=== PATIENT | male | born 1950 | race Caucasian/White ===

== ENCOUNTER 2016-05-05 23:04 | Emergency (ER) | payer MEDICARE, OTHER ==
[~2016-05-05 23:04] MED LIST: ADULT LOW DOSE81 MG PO; ANTIVERT 12.512.5 MG PO; COZAAR50 MG PO; FLAGYL500 MG PO; LEVAQUIN500 MG PO; LOPRESSOR50 MG PO; NITROSTAT0.4 MG SL; NORVASC5 MG PO; PHENERGAN 12.12.5 M1 PO; PLAVIX75 MG PO; PRAVACHOL40 MG PO; PROTONIX40 MG PO; RANEXA500 MG PO; TYLENOL325 MG PO
[2016-05-06 04:55] LABS: HEMOGLOBIN 13.7 gm/dl (14.0-17.5); RED BLOOD COUNT 4.51 M/UL (4.20-5.50); WHITE BLOOD COUNT 6.5 K/UL (4.5-11.0)
[2016-05-06 05:13] LABS: BUN/CREATININE RATIO 21 (0-10)
== END 2016-05-06 06:52 | disposition home or self-care (01) ==
LOC: ER1 23:04
PROVIDERS: Family Medicine
DX: I10 Essential (primary) hypertension (principal); R06.02 Shortness of breath; R05 Cough; I25.10 Atherosclerotic heart disease of native coronary artery without angina pectoris; E78.5 Hyperlipidemia, unspecified; Z95.5 Presence of coronary angioplasty implant and graft; Z90.49 Acquired absence of other specified parts of digestive tract; Z88.2 Allergy status to sulfonamides; Z88.5 Allergy status to narcotic agent; Z88.8 Allergy status to other drugs, medicaments and biological substances
CPT/HCPCS: 36415; 71010; 80053; 82550; 82553; 83874; 84484; 85025; 93005; 99285

== ENCOUNTER 2020-03-06 19:10 | Inpatient (IN) | payer MEDICARE, OTHER ==
[~2020-03-06] VITALS: Ht 172.7 cm; Wt 108.9 kg
[2020-03-06 20:09] LABS: HEMOGLOBIN 12.7 gm/dl (14.0-17.5); RED BLOOD COUNT 4.28 M/UL (4.20-5.50)
[2020-03-06 22:12] LABS: BUN/CREATININE RATIO 15 (0-10)
[2020-03-06] MEDS ORDERED: LIPITOR TAB 2020 MG PO (22:21)
[2020-03-06] MEDS ORDERED: DIOVAN 80 MG TA80 MG PO (22:22)
[2020-03-07 04:37] LABS: HEMOGLOBIN 12.5 gm/dl (14.0-17.5); RED BLOOD COUNT 4.32 M/UL (4.20-5.50); WHITE BLOOD COUNT 6.2 K/UL (4.5-11.0)
[2020-03-07 05:36] LABS: BUN/CREATININE RATIO 19 (0-10)
--- NOTE | 2020-03-07 18:20 | NUR ---
PATIENT ARRIVED TO THE FLOOR AT [facility] 18:10. PATIENT WAS IN NO DISTRESS ON OXYGEN. PATIENT WAS PUT ON VITALS MONITOR AND VITALS WERE NOTED TO BE STABLE. PATIENT GIVEN CALL LIGHT INSTRUCTION.
[2020-03-10 06:23] LABS: HEMOGLOBIN 11.9 gm/dl (14.0-17.5); RED BLOOD COUNT 4.08 M/UL (4.20-5.50); WHITE BLOOD COUNT 10.8 K/UL (4.5-11.0)
[2020-03-10 06:46] LABS: BUN/CREATININE RATIO 22 (0-10)
[2020-03-12 05:56] LABS: HEMOGLOBIN 11.8 gm/dl (14.0-17.5); RED BLOOD COUNT 4.03 M/UL (4.20-5.50)
[2020-03-12 06:21] LABS: BUN/CREATININE RATIO 23 (0-10)
[2020-03-13 04:40] LABS: HEMOGLOBIN 11.4 gm/dl (14.0-17.5); RED BLOOD COUNT 4.07 M/UL (4.20-5.50)
[2020-03-13 04:46] LABS: WHITE BLOOD COUNT 11.1 K/UL (4.5-11.0)
[2020-03-13 05:06] LABS: BUN/CREATININE RATIO 23 (0-10)
--- NOTE | 2020-03-13 10:50 | NUR ---
PATIENT O2 SATS 92% ON ROOM AIR
[2020-03-13] MEDS ORDERED: LEVOFLOXACIN500 MG PO (11:47)
[2020-03-13] MEDS ORDERED: MAALOX PLUS 3030 ML PO (11:47)
[2020-03-13] MEDS ORDERED: DEXAMETHASONE1 MG PO (11:47)
== END 2020-03-13 15:11 | disposition home or self-care (01) | DRG 177 ==
LOC: ER1 19:10 → MED SURG 4 21:15 → CDU 21:15 → MED SURG 4 03-07 19:28
PROVIDERS: Internal Medicine; Preventive Medicine Occupational Medicine; ADMIT Internal Medicine
PROC: 8E0ZXY6 Isolation (ICD-10-PCS; principal; 2020-03-06)
PROC: XW033E5 Introduction of Remdesivir Anti-infective into Peripheral Vein, Percutaneous Approach, New Technology Group 5 (ICD-10-PCS; 2020-03-06)
DX: U07.1 COVID-19 (principal); J12.82 Pneumonia due to coronavirus disease 2019; J96.01 Acute respiratory failure with hypoxia; K27.3 Acute peptic ulcer, site unspecified, without hemorrhage or perforation; I10 Essential (primary) hypertension; E78.5 Hyperlipidemia, unspecified; K21.9 Gastro-esophageal reflux disease without esophagitis; R00.0 Tachycardia, unspecified; E87.6 Hypokalemia; E66.01 Morbid (severe) obesity due to excess calories; E80.7 Disorder of bilirubin metabolism, unspecified; D64.9 Anemia, unspecified; R10.13 Epigastric pain; E80.6 Other disorders of bilirubin metabolism; K76.0 Fatty (change of) liver, not elsewhere classified; N28.1 Cyst of kidney, acquired; Z90.49 Acquired absence of other specified parts of digestive tract; Z88.8 Allergy status to other drugs, medicaments and biological substances; Z99.81 Dependence on supplemental oxygen; Z79.01 Long term (current) use of anticoagulants; Z68.36 Body mass index [BMI] 36.0-36.9, adult
CPT/HCPCS: 36415; 36600; 51702; 71045; 71275; 76705; 80048; 80053; 81001; 82150; 82550; 82553; 82728; 82803; 83605; 83690; 83735; 84484; 85025; 85379; 85652; 86140; 87086; 93005; 96365; 96366; 96367; 96368; 96375; 96376; 99285; C9113; J0456; J1100; J1650; J1885; J2270; J2405; J2765; J3480; J7030; Q9967; U0002

== ENCOUNTER 2020-04-30 16:58 | Emergency (ER) | payer MEDICARE, OTHER ==
[~2020-04-30 16:58] MED LIST changes: +DEXAMETHASONE1 MG PO; +DIOVAN 80 MG TA80 MG PO; +LEVOFLOXACIN500 MG PO; +LIPITOR TAB 2020 MG PO; +MAALOX PLUS 3030 ML PO
[2020-04-30 19:22] LABS: HEMOGLOBIN 12.3 gm/dl (14.0-17.5); RED BLOOD COUNT 4.31 M/UL (4.20-5.50)
[2020-04-30 19:45] LABS: BUN/CREATININE RATIO 21 (0-10)
[2020-04-30] MEDS ORDERED: CEFUROXIME500 MG PO (21:31)
[2020-04-30] MEDS ORDERED: ZOFRAN4 MG PO (21:31)
== END 2020-04-30 22:00 | disposition home or self-care (01) ==
LOC: ER1 16:58
PROVIDERS: Preventive Medicine Occupational Medicine
DX: B34.9 Viral infection, unspecified (principal); I10 Essential (primary) hypertension; Z88.2 Allergy status to sulfonamides; Z90.89 Acquired absence of other organs
CPT/HCPCS: 80053; 81001; 83605; 83690; 85025; 85652; 86140; 87086; 96374; 96375; 99284; J1170; J2405; Q9967

== ENCOUNTER 2020-09-09 01:11 | Emergency (ER) | payer MEDICARE, OTHER ==
[~2020-09-09 01:11] MED LIST changes: +CEFUROXIME500 MG PO; +ZOFRAN4 MG PO
[2020-09-09 03:06] LABS: HEMOGLOBIN 12.2 gm/dl (14.0-17.5); RED BLOOD COUNT 4.06 M/UL (4.20-5.50); WHITE BLOOD COUNT 7.6 K/UL (4.5-11.0)
[2020-09-09 03:45] LABS: BUN/CREATININE RATIO 14 (0-10)
[2020-09-09] MEDS ORDERED: VIBRAMYCIN100 MG PO (06:06)
[2020-09-09] MEDS ORDERED: CEFPODOXIME PR200 MG PO (06:06)
== END 2020-09-09 06:28 | disposition home or self-care (01) ==
LOC: ER1 01:11
PROVIDERS: Student in an Organized Health Care Education/Training Program
DX: E87.6 Hypokalemia (principal); I10 Essential (primary) hypertension; I25.10 Atherosclerotic heart disease of native coronary artery without angina pectoris; Z90.89 Acquired absence of other organs; Z90.49 Acquired absence of other specified parts of digestive tract; Z20.822 Contact with and (suspected) exposure to COVID-19
CPT/HCPCS: 0240U; 80053; 80076; 81001; 82550; 82553; 83605; 83690; 83735; 83874; 84100; 84439; 84443; 84484; 85025; 85652; 86140; 93005; 96374; 99285; J3475; J7070; Q9967

== ENCOUNTER 2021-08-27 07:00 | Observation (INO) | payer MEDICARE, OTHER ==
[~2021-08-27] VITALS: Ht 172.7 cm; Wt 104.3 kg
[~2021-08-27 07:00] MED LIST changes: +CEFPODOXIME PR200 MG PO; +VIBRAMYCIN100 MG PO
[2021-08-27 08:31] LABS: HEMOGLOBIN 13.9 gm/dl (14.0-17.5); RED BLOOD COUNT 4.66 M/UL (4.20-5.50); WHITE BLOOD COUNT 7.6 K/UL (4.5-11.0)
[2021-08-27 09:23] LABS: BUN/CREATININE RATIO 18 (0-10)
--- NOTE | 2021-08-27 19:24 | NUR ---
PATIENT COMPLAINING ABOUT PAIN TODAY CALLED DR THOMAS WHO GAVE ORDER OF PERCOCET PATIENT SAID HE WOULD TRY THIS AND IF IT DIDNT WORK THEN HE WAS GOING HOME BECAUSE THE MORPHINE WAS NOT HELPING AND HE DID NOT THINK IT WAS MUSCLE RELATED LIKE DR THOMAS.
[2021-08-28 02:45] LABS: HEMOGLOBIN 13.3 gm/dl (14.0-17.5); RED BLOOD COUNT 4.44 M/UL (4.20-5.50); WHITE BLOOD COUNT 9.3 K/UL (4.5-11.0)
[2021-08-28 03:01] LABS: BUN/CREATININE RATIO 21 (0-10)
--- NOTE | 2021-08-29 09:25 | NUR ---
PATIENT COMPLAINS THAT WE ARE NOT HELPING HIM AND HE WANTS TO LEAVE AMA. I EXPLAINED TO HIM THAT THATWOULD NOT BE A GOOD IDEA WITH THE PROBLEMS HE HAS HAD. PATIENT STILL HAVING EPISODES OF SINUS TACK. NO DISTRESS NOTED OTHER THAN THE HIGH HEART RATE AND HIM BEING MAD AT US. DR LOONEY INFORMED OF PATIENTS CONDITION AND REQUESTS.
[2021-08-29] MEDS ORDERED: ELIQUIS5 MG PO (10:28)
--- NOTE | 2021-08-29 12:21 | NUR ---
PATIENT INFORMED WE WOULD BE BRINGING A WHEELCHAIR, BUT INSISTED ON WALKING HIMSELF. I WAS NOT ABLE TO CONVINCE HIM TO WAIT. INFORMED HIM OF THE RISKS BUT HE RELIED HE DIDNT CARE. PATIENT LEFT ROOM AND WENT WALKING DOWN HALLWAY TO LEAVE.
== END 2021-08-29 12:34 | disposition home or self-care (01) ==
LOC: ER1 07:00 → M/S 09:38 → CDU 09:38 → M/S 12:08
PROVIDERS: Physician Assistant; ADMIT Internal Medicine
DX: R07.89 Other chest pain (principal); I48.91 Unspecified atrial fibrillation; E78.5 Hyperlipidemia, unspecified; D69.6 Thrombocytopenia, unspecified; I10 Essential (primary) hypertension; I25.10 Atherosclerotic heart disease of native coronary artery without angina pectoris; F41.9 Anxiety disorder, unspecified; E80.6 Other disorders of bilirubin metabolism; D64.9 Anemia, unspecified; E66.9 Obesity, unspecified; Z68.34 Body mass index [BMI] 34.0-34.9, adult; Z53.29 Procedure and treatment not carried out because of patient's decision for other reasons; Z95.5 Presence of coronary angioplasty implant and graft; Z88.1 Allergy status to other antibiotic agents; Z88.2 Allergy status to sulfonamides; Z88.5 Allergy status to narcotic agent; Z88.8 Allergy status to other drugs, medicaments and biological substances; Z79.02 Long term (current) use of antithrombotics/antiplatelets; Z79.899 Other long term (current) drug therapy
CPT/HCPCS: ECHO; 36415; 71045; 80053; 82550; 82553; 83690; 83735; 83880; 84484; 85025; 93005; 93306; 96372; 96374; 96375; 96376; 99285; G0378; J1650; J2270; J2405; Q9967